=== PATIENT | female | born 1970 | race Two or more races ===

== ENCOUNTER 2019-02-08 22:11 | Emergency (ER) | payer OTHER ==
[2019-02-08 22:33] VITALS: BP 125/75
[2019-02-09] MEDS ORDERED: FAMOTIDINE 20 MG TABLET PO ONE (00:37)
[2019-02-09] MEDS ORDERED: PREDNISONE 20 MG TABLET PO ONE (00:37)
--- NOTE | 2019-02-09 00:37 | ER Document Report ---
HPI - HPI Time Seen by Provider: 02/09/19 00:36 Pain Level: 5 Notes: Patient is a 48-year-old female presented to the emergency department chief complaint of possible insect bite or animal bite to her right foot. Patient reports she was walking to the grass in the dark when she all of a sudden felt a very painful sensation on the bottom of her foot. Patient is unsure what this came from. At the time of arrival patient reports this happened at least 4 hours ago. Patient states she did not see any animals, snakes or insects in the area. - REPRODUCTIVE Reproductive: DENIES: : Past Medical History - General Information source: Patient - Social History Smoking Status: Never Smoker Frequency of alcohol use: None Drug Abuse: None Family History: Reviewed & Not Pertinent - Medical History Medical History: Negative Surgical Hx: Negative - Immunizations Immunizations up to date: Yes Vertical Provider Document - CONSTITUTIONAL Notes: PHYSICAL EXAMINATION: GENERAL: Well-appearing, well-nourished and in no acute distress. HEAD: Atraumatic, normocephalic. EYES: Pupils equal round extraocular movements intact, conjunctiva are normal. ENT: Nares patent NECK: Normal range of motion LUNGS: No respiratory distress Musculoskeletal: Normal range of motion NEUROLOGICAL: Normal speech, normal gait. PSYCH: Normal mood, normal affect. SKIN: Slight erythema noted to the plantar surface of the right foot along the ball of the foot and digits #1 2 and 3. - INFECTION CONTROL TRAVEL OUTSIDE OF THE [place] IN LAST 30 DAYS: No Course - Re-evaluation Re-evalutation: Patient does have some erythema to the plantar surface of her right foot, and x- ray was obtained and shows no retained foreign body and no fracture. I do not see any puncture wounds consistent with a specific animal bite or sting. She will be started on cephalexin as a precaution as there is erythema and pain. This does not appear to be infected at this time and again the incident occurred only 4 hours prior to my evaluation of the patient. - Vital Signs Vital signs: Temp Pulse Resp BP Pulse Ox 98.0 F 71 18 125/75 98 02/08/19 22:32 02/08/19 22:32 02/08/19 22:32 02/08/19 22:32 02/08/19 22:32 Discharge - Discharge Clinical Impression: Insect bite Qualifiers: Encounter type: initial encounter Site of insect bite: unspecified site Qualified Code(s): W57.XXXA - Bitten or stung by nonvenomous insect and other nonvenomous arthropods, initial encounter Condition: Stable Disposition: HOME, SELF-CARE Additional Instructions: Insect Bites You have been bitten by an insect. These bites can cause two types of swelling: an initial swelling due to insect saliva or injected poison, and a l ate reaction due to your body's allergic reaction. This initial local reaction may be uncomfortable but is not dangerous. Often there's an itchy "hive" at the bite location. This is treated with antihistamines, cold compresses, and resting the affected body part. The later reaction often develops about the second day. The entire area becomes very swollen, red, itchy, and tender. This is an allergic reaction. Your body is attacking the leftover insect saliva or venom. This type of allergy is unpleasant, but not dangerous. We treat this swelling with cortisone-type medicine. Sometimes we use antibiotics if we're worried about infection. Antihistamines help with the itch. If you develop a fever, chills, a red streak, or swollen glands in the area of the bite, infection may be starting. Return at once. Please take the antibiotic as prescribed. I am prescribing this due to the amount of pain you have as well as the amount of swelling and redness. I would also like you to take Benadryl 25 to 50 mg every 6 hours. This will help with swelling and inflammation. He should also take ibuprofen 600 mg every 6 hours. The x-ray was negative for any obvious injury. Please return to the emergency department with any new or worsening symptoms to include worsening pain, redness, swelling, drainage from the area Prescriptions: Cephalexin [Cephalexin 500 MG Tablet] 1 tab PO BID #10 tablet Forms: Return to Work
--- NOTE | 2019-02-09 01:26 | RADIOLOGY REPORT (SQ) ---
CLINICAL HISTORY: injury? possible bite? swelling/erythema COMPARISON: None. TECHNIQUE: XR FOOT 3 OR MORE VIEWS 02/09/2019 12:36 AM CDT FINDINGS: There is no fracture. Joint spaces are preserved. Soft tissues are unremarkable. IMPRESSION: No acute osseous findings.
== END 2019-02-09 02:00 | disposition home or self-care (01) ==
LOC: ER 22:11
DX: S90.861A Insect bite (nonvenomous), right foot, initial encounter (principal); M79.671 Pain in right foot; W57.XXXA Bitten or stung by nonvenomous insect and other nonvenomous arthropods, initial encounter
CPT/HCPCS: 99282; 73630; J7512